=== PATIENT | female | born 1980 | race Caucasian/White ===

== ENCOUNTER → 2021-05-14 | Outpatient (CLI) | payer BC ==
[~2021-05-14] MED LIST: IBU-6600 MG PO; PERCOCET 325 MG1 TA2 PO; PRENATAL VITAMI1 TA5 PO
== END ==
LOC: MC.RAD 14:56
DX: Z12.31 Encounter for screening mammogram for malignant neoplasm of breast (principal); N63.20 Unspecified lump in the left breast, unspecified quadrant

== ENCOUNTER → 2021-05-21 | Outpatient (CLI) | payer BC | LOC: MC.RAD 13:57 | DX: N60.02 Solitary cyst of left breast (principal) ==